=== PATIENT | male | born 1960 | race African-American/Black ===

== ENCOUNTER → 2021-03-17 | Day surgery (SDC) | payer OTHER ==
[~2021-03-17] VITALS: Ht 195.6 cm; Wt 136.0 kg
[~2021-03-17] MED LIST: AMLO1CAP9 PO; IBUP-1060 PO; IV RINGERS,LACTATED 1000ML 1,000 ML IV SCH; PROPOFOL 10 MG/ML (20ML) VIAL. IV ONE
[2021-03-17 08:41] VITALS: BP 154/75
--- NOTE | 2021-03-17 09:15 | CONS ---
DATE OF CONSULTATION: 03/17/2021 UPDATED HISTORY AND PHYSICAL REASON: History of colonic polyps. HISTORY: This is a 61-year-old -Citizen Of [place] male whose past medical history is significant for colon polyps, hypertension, seen for interval colon exam. Last exam was approximately 5 years ago, which did reveal polyps. Bowel habits are regular without diarrhea or constipation. There has been no melena and/or hematochezia. Weight and appetite are stable. He is otherwise without additional complaints. PAST MEDICAL HISTORY: Hypertension, colonic polyps. ALLERGIES: None. FAMILY HISTORY: Significant for CVA, breast cancer and diabetes in siblings. SOCIAL HISTORY: He is a social drinker, former smoker. PAST SURGICAL HISTORY: Noncontributory. REVIEW OF SYSTEMS: Per records. PHYSICAL EXAMINATION: GENERAL: Reveals a well-nourished, well-developed male who is alert and cooperative, in no acute distress. VITAL SIGNS: Temperature 97.1, pulse 74, respiratory rate 18, blood pressure 130/70. LUNGS: Clear. CARDIOVASCULAR: Reveals an S1, S2, without S3, S4 or appreciable murmur. ABDOMEN: Reveals a soft abdomen, normal bowel sounds without appreciable hepatosplenomegaly. IMPRESSION AND PLAN: History of colonic polyps. Surveillance exam is recommended at this time. Risks and benefits of procedure including risk of hemorrhage and perforation with operation have been discussed. The patient is willing to proceed. I thank Dr. Gonzalez for allowing us to consult and participate in this patient's care. KRYSTLE MIRANDA: Dileep TID: [id number] CC: CARSON GONZALEZ MD
[2021-03-17 09:42] VITALS: BP 127/67
== END | disposition home or self-care (01) ==
LOC: ENDOS 08:02
PROVIDERS: ATTEND Internal Medicine Gastroenterology
DX: Z12.11 Encounter for screening for malignant neoplasm of colon (principal); K64.0 First degree hemorrhoids; K57.30 Diverticulosis of large intestine without perforation or abscess without bleeding; K63.89 Other specified diseases of intestine; I10 Essential (primary) hypertension; M19.90 Unspecified osteoarthritis, unspecified site; Z86.010 Personal history of colon polyps; Z87.891 Personal history of nicotine dependence; Z79.899 Other long term (current) drug therapy; Z98.890 Other specified postprocedural states; Z82.49 Family history of ischemic heart disease and other diseases of the circulatory system; Z80.3 Family history of malignant neoplasm of breast; Z83.3 Family history of diabetes mellitus
CPT/HCPCS: 45378; J2704